=== PATIENT | male | born 2000 | race Hispanic/Latino ===

== ENCOUNTER 2025-09-22 11:34 | Emergency (ER) | payer SELFPAY ==
[~2025-09-22] VITALS: Ht 165.1 cm; Wt 72.6 kg
[2025-09-22 11:45] VITALS: BP 121/52; PULSE 95; RESP 20; TEMP 98.4; O2SAT 99
[2025-09-22] MEDS ORDERED: SULF1TAB42 PO (11:59)
--- NOTE | 2025-09-22 11:59 | ERN ---
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 Patient reports symptoms for five days no fevers no chest pain or shortness of breath no other complaints Allergies: Coded Allergies: No Known Allergies (Unverified Allergy, Unknown, 09/22/25) Past Medical History Past Medical History: No Pertinent History Surgical History: None Review of System Dictation Constitutional: Negative for fever,chills, and weight loss Eyes: Negative for injury, pain,redness, and discharge ENT: Negative for injury,pain or swelling Cardiovascular: Negative for chest pain, palpitations, and edema Respiratory: Negative for shortness of breath, cough, and wheezing, Abdomen/GI: Negative for abdominal pain, nausea, vomiting, diarrhea, and constipation Back: Negative for injury and pain : Negative for injury, bleeding and discharge MS/Extremity: Per HPI Skin: Per HPI Neuro: Negative for headache, weakness, numbness, tingling, and seizure Psych: Negative for suicide ideation, homicidal ideation, and hallucinations Initial Vital Sign VS Vital Signs Date Time Temp Pulse Resp B/P (MAP) Pulse Ox O2 Delivery O2 Flow Rate FiO2 09/22/25 11:36 98.4 105 20 117/46 99 Room Air 09/22/25 11:45 0 21 Physical Exam Dictation General: awake, alert, NAD Head/Face: Normocephalic, atraumatic Eyes: PERRL, EOMI, vision at baseline ENT: oral cavity clear, TMs clear, no signs of infection Neck: Trachea midline, supple, no nuchal rigidity Cardiovascular: RRR, normal S1/S2, No MRGs, no JVD Respiratory: CTAB, no respiratory distress, No rales or wheezes Abdomen: Soft, non-tender, non-distended, normal bowel sounds, no guarding or rebound. Skin: Warm, dry, normal turgor, no rash MS/Extremity: Pulses equal, no cyanosis, neurovascular intact, FROM, right lower leg lateral aspect erythema and drainage superficial compartments soft Neuro: COAx4, GCS 15, strength 5/5, CN 2-12 intact, normal cerebellar exam, normal gait, Psych: Normal behavior, mood, and affect normal ED Course ED Course Vital Signs Date Time Temp Pulse Resp B/P (MAP) Pulse Ox O2 Delivery O2 Flow Rate FiO2 09/22/25 11:45 98.4 95 20 121/52 99 Room Air* 0 21 09/22/25 11:36 98.4 105 20 117/46 99 Room Air Medical Decision Making MDM MDM: Differential diagnosis: Rationale: Tests considered and ordered secondary to shared decision making include: Previous outside records reviewed: Old ER visits. Risk of complication and/or morbidity or mortality of patient management: None Medications-Per medication reconciliation Need for hospitalization: Patient does not meet criteria for hospitalization. Need for emergency major/minor surgery: No There are no social concerns with this patient. Prescription drug management Prescriptions will include symptomatic care Patient's prior external medical records from other ER visits were reviewed by me as indicated. Prior testing and results from previous visits were reviewed. Prior tests were taken into account with medical decision making and resource utilization, independent historian/historians were used to obtain complete medical history. I independently interpreted the test that were performed, results were reviewed by me and considered findings on radiology if ordered. Medical management and examination interpretation discussions were had by me with other qualified healthcare professionals as indicated for the patient's care. 24 y/o M with cellulitis to right leg/lower, no obvious abscess with small drainage noted placed on MRSA coverage stable for discharge DX & DISP Disposition: Discharge Departure Impression: Primary Impression: Cellulitis of right leg Condition: Stable Scripts Sulfamethoxazole/Trimethoprim (Bactrim Ds Tablet) 800 Mg-160 Mg Tablet 1 TAB PO BID for 7 Days, #14 TAB 0 Refills Prov: TATO YOUNGBLOOD MD 09/22/25 TATO YOUNGBLOOD MD Sep 22, 2025 11:59
== END 2025-09-22 12:29 | disposition home or self-care (01) ==
LOC: EDH 11:34 → EEVIPCON 11:34 → EDH 12:29
DX: L03.115 Cellulitis of right lower limb (principal)
CPT/HCPCS: 99283